=== PATIENT | male | born 1995 | race Caucasian/White ===

== ENCOUNTER → 2023-04-17 | Outpatient (CLI) | payer OTHER | LOC: M RAD 09:35 | PROVIDERS: ATTEND Student in an Organized Health Care Education/Training Program | DX: N50.812 Left testicular pain (principal) ==

== ENCOUNTER 2025-07-31 09:37 | Day surgery (SDC) | payer OTHER ==
[~2025-07-31] VITALS: Ht 177.8 cm; Wt 102.0 kg
[2025-07-31] MEDS ORDERED: dexAMETHasone 4 MG/ML 1 ML VIAL As Ordered ONE (10:32)
[2025-07-31] MEDS ORDERED: SUGAMMADEX SODIUM 200 MG/2 ML VIAL As Ordered ONE (10:32)
[2025-07-31] MEDS ORDERED: ROCURONIUM BROMIDE 50MG/5ML VIAL As Ordered ONE (10:32)
[2025-07-31] MEDS ORDERED: LIDOCAINE 2% 100 MG/5 ML SDV (FOR ANES.) As Ordered ONE (10:32)
[2025-07-31] MEDS ORDERED: ONDANSETRON 4MG 2ML VIAL As Ordered ONE (10:33)
[2025-07-31] MEDS ORDERED: MIDAZOLAM INJ 2 MG/2 ML VIAL As Ordered ONE (10:33)
[2025-07-31] MEDS ORDERED: ACETAMINOPHEN 1000MG/100ML IV BAG As Ordered ONE (11:02)
[2025-07-31] MEDS: OXYMETAZOLINE 0.05% NASAL SPRAY As Ordered ONE (11:15)
[2025-07-31] MEDS: COCAINE 4% 4 ML NASAL SOLUTION BTL As Ordered ONE (11:15)
[2025-07-31] MEDS: LIDOCAINE W/EPINEPHrine 1% 20 ML VIAL As Ordered ONE (12:05)
[2025-07-31] MEDS ORDERED: LR 1,000 ML IV SCH (12:30)
[2025-07-31] MEDS ORDERED: MEPERIDINE 25 MG/ML 1 ML VIAL IV PRN (12:30)
[2025-07-31] MEDS ORDERED: ONDANSETRON 4MG 2ML VIAL IV PRN (12:30)
[2025-07-31] MEDS: HYDROMORPHONE HCL 0.5 MG/0.5 ML SYRINGE IV PRN (13:13)
[2025-07-31 13:46] VITALS: BP 137/79; TEMP 97.2; O2SAT 96
== END 2025-07-31 14:09 | disposition home or self-care (01) ==
LOC: M SDC 09:37
PROVIDERS: ATTEND Otolaryngology
DX: J34.2 Deviated nasal septum (principal); J34.3 Hypertrophy of nasal turbinates; G47.30 Sleep apnea, unspecified; Z88.1 Allergy status to other antibiotic agents
CPT/HCPCS: 30140; 30520; C9143; J0131; J1100; J1171; J2250; J2405; J3010